=== PATIENT | male | born 1970 | race Caucasian/White ===

== ENCOUNTER 2020-11-28 07:31 | Day surgery (SDC) | payer OTHER ==
[2020-11-26 16:13] VITALS: BMI 29.0
[2020-11-28] MEDS ORDERED: PROPOFOL 20 ML ONE ×3 (07:56)
[2020-11-28] MEDS ORDERED: LIDOCAINE HCL/PF 2% SDV 5ML VIAL ONE (07:56)
[2020-11-28 08:02] VITALS: TEMP 98.2
[2020-11-28 09:22] VITALS: BP 110/70; PULSE 81
== END 2020-11-28 09:30 | disposition home or self-care (01) ==
LOC: FASU-ENDO 07:31
PROVIDERS: ATTEND Internal Medicine Gastroenterology
PROC: 0DJD8ZZ Inspection of Lower Intestinal Tract, Via Natural or Artificial Opening Endoscopic (ICD-10-PCS; principal; 2020-11-28 08:29)
DX: Z12.11 Encounter for screening for malignant neoplasm of colon (principal); Z80.0 Family history of malignant neoplasm of digestive organs; Z83.71 Family history of colonic polyps